=== PATIENT | male | born 1985 | race Caucasian/White ===

== ENCOUNTER 2018-03-22 10:25 | Emergency (ER) | payer OTHER ==
[~2018-03-22] VITALS: Ht 182.9 cm; Wt 88.5 kg
[2018-03-22] MEDS ORDERED: MEDROLPACK PO (13:37)
[2018-03-22] MEDS ORDERED: TUSSI PRES-B L120 M1 PO (13:37)
[2018-03-22] MEDS ORDERED: AMOX1TAB5 PO (13:40)
== END 2018-03-22 14:08 | disposition home or self-care (01) ==
LOC: ER 10:25
DX: B34.9 Viral infection, unspecified (principal)